=== PATIENT | male | born 1975 | race Caucasian/White ===

== ENCOUNTER 2020-05-03 08:33 | Day surgery (SDC) | payer BC ==
[2020-05-02 08:32] VITALS: BMI 25.8
[~2020-05-03 08:33] MED LIST: LACTATED RINGERS 1,000 ML IV SCH; LIDOCAINE 1% (10MG/ML) FOR IV START INTRADERMA PRN
[2020-05-03 08:51] VITALS: TEMP 98.6
[2020-05-03] MEDS ORDERED: PROPOFOL 10 MG/ML 20 ML VIAL IV ONE (08:59)
--- NOTE | 2020-05-03 09:01 | P.GSHP ---
History of Present Illness H&P Date: 05/03/20 Chief Complaint: Blood in stool This is a 45-year-old male presents today for colonoscopy. Patient's had issues rectal bleeding. He states he notices blood after bowel movement. Patient's history of hemorrhoids. Past Medical History Past Medical History: Hyperlipidemia, Hypertension Additional Past Medical History / Comment(s): OCC. BLOOD IN STOOL History of Any Multi-Drug Resistant Organisms: None Reported Additional Past Surgical History / Comment(s): COLONOSCOPY Past Anesthesia/Blood Transfusion Reactions: No Reported Reaction Past Psychological History: Anxiety Smoking Status: Current every day smoker Past Alcohol Use History: Occasional Additional Past Alcohol Use History / Comment(s): SMOKES 1 PPD SINCE AGE 46 Past Drug Use History: None Reported - Past Family History Father Family Medical History: Cancer Medications and Allergies Home Medications Medication Instructions Recorded Confirmed Type Ezetimibe/Simvastatin [Vytorin 1 tab PO DAILY 05/02/20 05/03/20 History 10-20 mg] amLODIPine BESYLATE/BENAZEPRIL 1 cap PO DAILY 05/02/20 05/03/20 History [Lotrel 5-20 MG] Allergies Allergy/AdvReac Type Severity Reaction Status Date / Time No Known Allergies Allergy Verified 05/03/20 08:47 Surgical - Exam Vital Signs Temp Pulse Resp BP Pulse Ox 98.6 F 102 H 16 162/107 97 05/03/20 08:50 05/03/20 08:50 05/03/20 08:50 05/03/20 08:50 05/03/20 08:50 - General well developed, well nourished, no distress - Eyes PERRL - ENT normal pinna - Neck no masses - Respiratory normal expansion, normal respiratory effort - Cardiovascular Rhythm: regular - Abdomen Abdomen: soft, non tender Assessment and Plan Assessment: History of rectal bleeding. We'll perform colonoscopy.
--- NOTE | 2020-05-03 09:09 | P.OP ---
Date of Procedure: 05/03/20 Preoperative Diagnosis: GI bleed Postoperative Diagnosis: External hemorrhoids Procedure(s) Performed: Colonoscopy Anesthesia: MAC Surgeon: Luis Fernando Augustine Pathology: none sent Condition: stable Disposition: PACU Description of Procedure: The patient's placed on the endoscopy table in the lateral position. He received IV sedation. Digital rectal exam performed which revealed external hemorrhoids. Flexible colonoscope was then placed patient anus passed rotator entire colon. The ileocecal valve was visualized. The cecum, ascending and transverse colon appeared normal. The descending and sigmoid colon appeared normal. Scope was then brought back the rectum and this appeared normal. Scope withdrawn from the anus external hemorrhoids are noted. Resume patient's rectal bleeding is due to external hemorrhoids.
[2020-05-03 09:28] VITALS: BP 137/86; PULSE 92; RESP 18
== END 2020-05-03 09:53 | disposition home or self-care (01) ==
LOC: ORWHC2ENDO 08:33
PROVIDERS: ATTEND Surgery
DX: K64.4 Residual hemorrhoidal skin tags (principal); E78.5 Hyperlipidemia, unspecified; I10 Essential (primary) hypertension; F41.9 Anxiety disorder, unspecified; F17.210 Nicotine dependence, cigarettes, uncomplicated; Z80.9 Family history of malignant neoplasm, unspecified; Z79.899 Other long term (current) drug therapy; Z98.890 Other specified postprocedural states
CPT/HCPCS: 45378; J2704

== ENCOUNTER → 2020-05-29 | Day surgery (SDC) | payer BC ==
[2020-05-28 13:33] VITALS: BMI 25.8
[~2020-05-29] MED LIST changes: +ACETAMINOPHEN TAB 500 MG TAB PO ONE; +BUPIVACAINE (PF) 0.5% 30 ML VIAL SQ ONE; +DEXAMETHASONE SOD PHOSPHATE 4 MG/ML 1 ML VIAL IV ONE; +HEPARIN SODIUM,PORCINE 5,000 UNIT/ML 1 ML VIAL SQ ONE; +HYDROmorphone 0.5 MG/0.5 ML SYRINGE IVP PRN; +KETAMINE 10 MG/ML 20 ML VIAL ONE; -LIDOCAINE 1% (10MG/ML) FOR IV START INTRADERMA PRN; +LIDOCAINE 1% INJ 10MG/ML (20 ML MDV) ONE; +LIDOCAINE 1%-EPI 1:100,000 20 ML VIAL SQ ONE; +MIDAZOLAM 2 MG/2 ML VIAL IV PRN; +MIDAZOLAM 2 MG/2 ML VIAL ONE; +NA PHOS,M-B/NA PHOS,DI-BA 133 ML ENEMA RECTAL ONE; +ONDANSETRON 4 MG/2 ML VIAL IVP ONE; +PROPOFOL 10 MG/ML 20 ML VIAL IV ONE; +Pre Op ABX Message 1 EACH MISC MISCELLANE ONE; +SCOPOLAMINE 1.5MG/72HR PATCH TRANSDERM ONE; +SODIUM CHLORIDE 0.9% 50 ML with ceFAZolin 2,000 MG IV ONE; +fentaNYL (PF) 50 MCG/ML 2 ML AMP ONE
[2020-05-29 07:21] VITALS: TEMP 98.6
--- NOTE | 2020-05-29 08:51 | P.GSHP ---
History of Present Illness H&P Date: 05/29/20 Chief Complaint: Internal and external hemorrhoids This a 45-year-old male who has had issues with anal pain and bleeding from internal and external hemorrhoids. He returns today for hemorrhoidectomy. Past Medical History Past Medical History: GERD/Reflux, Hyperlipidemia, Hypertension Additional Past Medical History / Comment(s): OCC. BLOOD IN STOOL, hemorrhoids, History of Any Multi-Drug Resistant Organisms: None Reported Additional Past Surgical History / Comment(s): COLONOSCOPY Past Anesthesia/Blood Transfusion Reactions: No Reported Reaction Smoking Status: Current every day smoker - Past Family History Father Family Medical History: Cancer Medications and Allergies Home Medications Medication Instructions Recorded Confirmed Type Ezetimibe/Simvastatin [Vytorin 1 tab PO HS 05/02/20 05/29/20 History 10-20 mg] amLODIPine BESYLATE/BENAZEPRIL 1 cap PO DAILY 05/02/20 05/29/20 History [Lotrel 5-20 MG] Allergies Allergy/AdvReac Type Severity Reaction Status Date / Time No Known Allergies Allergy Verified 05/29/20 07:34 Surgical - Exam Vital Signs Temp Pulse Resp BP Pulse Ox 98.6 F 82 17 157/103 98 05/29/20 07:20 05/29/20 07:20 05/29/20 07:20 05/29/20 07:20 05/29/20 07:20 - General well developed, well nourished, no distress - Eyes PERRL - ENT normal pinna - Neck no masses - Respiratory normal expansion - Cardiovascular Rhythm: regular - Abdomen Abdomen: soft, non tender - Rectum Internal and external hemorrhoids Assessment and Plan Assessment: Internal and external hemorrhoids. We'll perform hemorrhoidectomy.
--- NOTE | 2020-05-29 09:34 | P.OP ---
Date of Procedure: 05/29/20 Preoperative Diagnosis: Internal and Hemorrhoids Postoperative Diagnosis: Internal and external hemorrhoids Procedure(s) Performed: Internal and external hemorrhoidectomy Anesthesia: MAC, regional Surgeon: Luis Fernando Augustine Estimated Blood Loss (ml): 5 Pathology: other (Internal and external hemorrhoids) Condition: stable Disposition: PACU Description of Procedure: The patient's placed on the operative table in the prone jackknife position. He received IV sedation. His anus was prepped and draped usual fashion. The anus was anesthetized 1% local Xylocaine. The patient had a large left lateral hemorrhoidal column and a large right anterior hemorrhoidal column. The anal r etractors placed in the anus. The left lateral hemorrhoidal column was grasped with a Allis clamp and then using the Harmonic scissors the hemorrhoidectomy is performed. The mucosal edges were reapproximated using 3-0 Vicryl. Next the right anterior hemorrhoid column was excised in identical fashion. The anus was excised examined there is no bleeding seen. The anus was packed with Gelfoam. Patient top she will was sent to recovery room in stable condition.
[2020-05-29 09:40] VITALS: RESP 16
[2020-05-29 10:22] VITALS: BP 155/90; PULSE 86
== END ==
LOC: OR 06:52
PROVIDERS: ATTEND Surgery
DX: K64.8 Other hemorrhoids (principal); K64.4 Residual hemorrhoidal skin tags; K64.5 Perianal venous thrombosis; K21.9 Gastro-esophageal reflux disease without esophagitis; E78.5 Hyperlipidemia, unspecified; I10 Essential (primary) hypertension; F17.210 Nicotine dependence, cigarettes, uncomplicated; Z98.890 Other specified postprocedural states; Z79.899 Other long term (current) drug therapy; Z80.9 Family history of malignant neoplasm, unspecified
CPT/HCPCS: 88304; 46260; J2250; J1644; J1100; J2405; J0690; J2001; J3010; J2704

== ENCOUNTER 2023-05-22 13:45 | Emergency (ER) | payer BC ==
--- NOTE | 2023-05-22 13:59 | ED ---
Dizziness HPI - General Stated Complaint: dizzy Time Seen by Provider: 05/22/23 13:56 Source: patient Limitations: no limitations - History of Present Illness Initial Comments: This patient is a 48-year-old man who presents to have evaluation for feeling lightheaded and dizzy. Patient states that he had gotten up to use the bathroom, and then after urinating felt lightheaded and off balance. The annmarie ent's daughter reported that he went down to his knees and did briefly pass out. He then states he remembers feeling nauseated and vomited once. The patient's checked his blood pressure and it was 170/110. They checked again a few minutes later and it had gone up so she called EMS and he was brought here. The patient denies chest pain, dyspnea, diaphoresis. No neurologic symptoms. MD Complaint: lightheadedness -: minutes(s) Timing: sudden onset Description: lightheadedness, off-balance History of Same: No History of Trauma: No Severity: moderate Improves With: nothing Associated Symptoms: syncope - Related Data Previous Rx's Medication Instructions Recorded amLODIPine BESYLATE/BENAZEPRIL 1 each PO DAILY #20 capsule 05/22/23 [Lotrel 5-20 mg Capsule] Allergies Allergy/AdvReac Type Severity Reaction Status Date / Time No Known Allergies Allergy Verified 05/22/23 15:37 Review of Systems ROS Statement: Those systems with pertinent positive or pertinent negative responses have been documented in the HPI. ROS Other: All systems not noted in ROS Statement are negative. Constitutional: Denies: fever, chills Eyes: Denies: vision change Respiratory: Denies: cough, dyspnea, wheezes Cardiovascular: Denies: chest pain, palpitations, orthopnea, edema, syncope Gastrointestinal: Reports: nausea, vomiting. Denies: abdominal pain, diarrhea, melena, hematochezia Genitourinary: Denies: dysuria, hematuria Musculoskeletal: Denies: back pain Skin: Denies: rash Neurological: Denies: headache, weakness, numbness Past Medical History Past Medical History: GERD/Reflux, Hyperlipidemia, Hypertension Additional Past Medical History / Comment(s): OCC. BLOOD IN STOOL, hemorrhoids, History of Any Multi-Drug Resistant Organisms: None Reported Additional Past Surgical History / Comment(s): COLONOSCOPY Past Anesthesia/Blood Transfusion Reactions: No Reported Reaction Smoking Status: Current every day smoker - Past Family History Father Family Medical History: Cancer General Exam General appearance: alert, in no apparent distress Head exam: Present: atraumatic, normocephalic Eye exam: Present: normal appearance. Absent: scleral icterus, conjunctival injection ENT exam: Present: normal oropharynx Neck exam: Present: normal inspection Respiratory exam: Present: normal lung sounds bilaterally. Absent: respiratory distress, wheezes, rales, rhonchi, stridor Cardiovascular Exam: Present: regular rate, normal rhythm, normal heart sounds. Absent: systolic murmur, diastolic murmur, rubs, gallop GI/Abdominal exam: Present: soft. Absent: distended, tenderness, guarding, rebound, rigid, mass Extremities exam: Present: normal inspection, normal capillary refill. Absent: pedal edema, calf tenderness Back exam: Present: normal inspection. Absent: CVA tenderness (R), CVA tenderness (L) Neurological exam: Present: alert Skin exam: Present: warm, dry, intact, normal color. Absent: rash Course Vital Signs 05/22/23 05/22/23 05/22/23 13:50 14:00 14:15 Temperature 97.9 F Pulse Rate 77 70 75 Respiratory 15 15 15 Rate Blood Pressure 195/122 195/122 184/120 O2 Sat by Pulse 94 L 96 95 Oximetry 05/22/23 05/22/23 05/22/23 14:30 15:00 15:30 Temperature Pulse Rate 78 76 62 Respiratory 16 15 16 Rate Blood Pressure 182/118 188/113 179/119 O2 Sat by Pulse 96 98 Oximetry 05/22/23 05/22/23 05/22/23 16:00 16:30 17:00 Temperature Pulse Rate 59 L 67 73 Respiratory 15 17 20 Rate Blood Pressure 192/120 167/114 170/112 O2 Sat by Pulse 96 97 97 Oximetry 05/22/23 05/22/23 05/22/23 17:30 18:00 18:17 Temperature Pulse Rate 64 69 Respiratory 17 17 Rate Blood Pressure 174/112 172/107 166/107 O2 Sat by Pulse 96 96 Oximetry EKG Findings - EKG Results: EKG: interpreted by ERMJax, sinus rhythm (79 bpm), normal axis - Blocks, [place], Hypertrophy, ST Abn: AV and intraventricular conduction: intraventricular conduction delay Medical Decision Making - Medical Decision Making The patient had chest x-ray which I interpreted as negative for acute infiltrate, congestive heart failure, pneumothorax. This patient is 48-year-old man who presents to have evaluation for dizziness and found to be hypertensive. The patient had previous taken antihypertensives but then had not had these refilled for some period of time. The workup here is negative. Patient will be replaced on antihypertensives and have appropriate further care and follow-up Was pt. sent in by a medical professional or institution (, [facility]LLY, FIRING PIN GAUGER, urgent care, hospital, or correction...) When possible be specific @ -[No] Did you speak to anyone other than the patient for history (EMS, parent, family, police, friend...)? What history was obtained from this source @ -[Family did contribute history Did you review nursing and triage notes (agree or disagree)? Why? @ -[I reviewed and agree with nursing and triage notes] Were old charts reviewed (outside hosp., previous admission, EMS record, old EKG, old radiological studies, urgent care reports/EKG's, correction records)? Report findings @ -[No old charts were reviewed] Differential Diagnosis (chest pain, altered mental status, abdominal pain women, abdominal pain men, vaginal bleeding, weakness, fever, dyspnea, syncope, headache, dizziness, GI bleed, back pain, seizure, CVA, palpatations, mental health, musculoskeletal)? @ -Differential Dizziness: Benign paroxysmal positional Vertigo, Menieres disease, otitis media, acoustic neuroma, vertebrobasilar insufficiency, cerebellar stroke, encephalitis, hypovol emic, arrhythmia, coronary artery syndrome, anemia, this is not meant to be an all-inclusive list EKG interpreted by me (3pts min.). @ -[I interpreted As above] X-rays interpreted by me (1pt min.). @ -[I interpreted as above CT interpreted by me (1pt min.). @ -[None done] U/S interpreted by me (1pt. min.). @ -[None done] What testing was considered but not performed or refused? (CT, X-rays, U/S, labs)? Why? @ -[None] What meds were considered but not given or refused? Why? @ -[None] Did you discuss the management of the patient with other professionals (professionals i.e. CHELLY Morris, [employer]ING [employer]GER, lab, RT, psych nurse, social work lecturer, supervisor bridges and buildings, teacher, attendance officer, director case management)? Give summary @ -[No] Was smoking cessation discussed for >3mins.? @ -[No] Was critical care preformed (if so, how long)? @ -[No] Were there social determinants of health that impacted care today? How? (Homelessness, low income, unemployed, alcoholism, drug addiction, transportation, low edu. Level, literacy, decrease access to med. care, care home, rehab)? @ -[No] Was there de-escalation of care discussed even if they declined (Discuss DNR or withdrawal of care, Hospice)? DNR status @ -[No] What co-morbidities impacted this encounter? (DM, HTN, Smoking, COPD, CAD, Cancer, CVA, ARF, Chemo, Hep., AIDS, mental health diagnosis, sleep apnea, morbid obesity)? @ -[None] Was patient admitted / discharged? Hospital course, mention meds given and route, prescriptions, significant lab abnormalities, going to OR and other pertinent info. @ -[As above Undiagnosed new problem with uncertain prognosis? @ -[No] Drug Therapy requiring intensive monitoring for toxicity (Heparin, Nitro, Insulin, Cardizem)? @ -[No] Were any procedures done? @ -[No] Diagnosis/symptom? @ -[Acute dizziness Acute on Chronic hypertension Acute, or Chronic, or Acute on Chronic? @ -[default] Uncomplicated (without systemic symptoms) or Complicated (systemic symptoms)? @ -[Hypertension, by dizziness Side effects of treatment? @ -[No] Exacerbation, Progression, or Severe Exacerbation? @ -[No] Poses a threat to life or bodily function? How? (Chest pain, [place], [place], pneumonia, PE, COPD, DKA, ARF, appy, cholecystitis, CVA, Diverticulitis, Homicidal, Suicidal, threat to staff... and all critical care pts) @ -[Untreated hypertension will eventually progress to organ system injury - Lab Data Result diagrams: 05/22/23 14:03 05/22/23 14:03 Lab Results 05/22/23 05/22/23 05/22/23 Range/Units 14:03 14:03 14:03 WBC 8.3 (3.8-10.6) k/uL RBC 4.97 (4.30-5.90) m/uL Hgb 14.7 (13.0-17.5) gm/dL Hct 42.1 (39.0-53.0) % MCV 84.8 (80.0-100.0) fL MCH 29.6 (25.0-35.0) pg MCHC 34.9 (31.0-37.0) g/dL RDW 12.9 (11.5-15.5) % Plt Count 206 (150-450) k/uL MPV 7.8 Neutrophils % 69 % Lymphocytes % 24 % Monocytes % 5 % Eosinophils % 1 % Basophils % 0 % Neutrophils # 5.8 (1.3-7.7) k/uL Lymphocytes # 2.0 (1.0-4.8) k/uL Monocytes # 0.4 (0-1.0) k/uL Eosinophils # 0.1 (0-0.7) k/uL Basophils # 0.0 (0-0.2) k/uL PT 10.1 (10.0-12.5) sec INR 0.9 (<1.2) APTT 23.2 (22.0-30.0) sec Sodium 141 (137-145) mmol/L Potassium 3.3 L (3.5-5.1) mmol/L Chloride 110 H (98-107) mmol/L Carbon Dioxide 22 (22-30) mmol/L Anion Gap 9 mmol/L BUN 9 (9-20) mg/dL Creatinine 1.00 (0.66-1.25) mg/dL Est GFR (CKD-EPI)AfAm >90 (>60 ml/min/1.73 sqM) Est GFR (CKD-EPI)NonAf 89 (>60 ml/min/1.73 sqM) Glucose 108 H (74-99) mg/dL Calcium 8.8 (8.4-10.2) mg/dL Magnesium 2.1 (1.6-2.3) mg/dL Total Bilirubin 0.6 (0.2-1.3) mg/dL AST 19 (17-59) U/L ALT 15 (4-49) U/L Alkaline Phosphatase 90 (38-126) U/L Troponin I (0.000-0.034) ng/mL Total Protein 6.7 (6.3-8.2) g/dL Albumin 4.1 (3.5-5.0) g/dL 05/22/23 Range/Units 14:03 WBC (3.8-10.6) k/uL RBC (4.30-5.90) m/uL Hgb (13.0-17.5) gm/dL Hct (39.0-53.0) % MCV (80.0-100.0) fL MCH (25.0-35.0) pg MCHC (31.0-37.0) g/dL RDW (11.5-15.5) % Plt Count (150-450) k/uL MPV Neutrophils % % Lymphocytes % % Monocytes % % Eosinophils % % Basophils % % Neutrophils # (1.3-7.7) k/uL Lymphocytes # (1.0-4.8) k/uL Monocytes # (0-1.0) k/uL Eosinophils # (0-0.7) k/uL Basophils # (0-0.2) k/uL PT (10.0-12.5) sec INR (<1.2) APTT (22.0-30.0) sec Sodium (137-145) mmol/L Potassium (3.5-5.1) mmol/L Chloride (98-107) mmol/L Carbon Dioxide (22-30) mmol/L Anion Gap mmol/L BUN (9-20) mg/dL Creatinine (0.66-1.25) mg/dL Est GFR (CKD-EPI)AfAm (>60 ml/min/1.73 sqM) Est GFR (CKD-EPI)NonAf (>60 ml/min/1.73 sqM) Glucose (74-99) mg/dL Calcium (8.4-10.2) mg/dL Magnesium (1.6-2.3) mg/dL Total Bilirubin (0.2-1.3) mg/dL AST (17-59) U/L ALT (4-49) U/L Alkaline Phosphatase (38-126) U/L Troponin I 0.014 (0.000-0.034) ng/mL Total Protein (6.3-8.2) g/dL Albumin (3.5-5.0) g/dL Disposition Clinical Impression: Hypertension, Dizziness Disposition: HOME SELF-CARE Condition: Good Instructions (If sedation given, give patient instructions): Hypertension (ED), Dizziness (ED) Prescriptions: amLODIPine BESYLATE/BENAZEPRIL [Lotrel 5-20 mg Capsule] 1 each PO DAILY #20 capsule Is patient prescribed a controlled substance at d/c from ED?: No Referrals: José Luis Jerome MD [Primary Care Provider] - 1-2 days
[2023-05-22 14:09] LABS: Basophils % (A) 0 %; Eosinophils # (A) 0.1 k/uL (0-0.7); Eosinophils % (A) 1 %; HCT 42.1 % (39.0-53.0); HGB 14.7 gm/dL (13.0-17.5); Lymphocytes % (A) 24 %; MCH 29.6 pg (25.0-35.0); MCHC 34.9 g/dL (31.0-37.0); MCV 84.8 fL (80.0-100.0); Mean Platelet Volume 7.8; Monocytes # (A) 0.4 k/uL (0-1.0); Monocytes % (A) 5 %; Neutrophils # (A) 5.8 k/uL (1.3-7.7); Neutrophils % (A) 69 %; Platelet Count 206 k/uL (150-450); RBC 4.97 m/uL (4.30-5.90); RDW 12.9 % (11.5-15.5); WBC 8.3 k/uL (3.8-10.6)
[2023-05-22 14:20] VITALS: TEMP 97.9
[2023-05-22 14:23] LABS: ALT 15 U/L (4-49); AST 19 U/L (17-59); African American GFR (CKD) >90 (>60 ml/min/1.73 sqM); Albumin 4.1 g/dL (3.5-5.0); Alkaline Phosphatase 90 U/L (38-126); Anion Gap 9 mmol/L; Blood Urea Nitrogen 9 mg/dL (9-20); Calcium 8.8 mg/dL (8.4-10.2); Carbon Dioxide 22 mmol/L (22-30); Chloride 110 mmol/L (98-107); Glucose 108 mg/dL (74-99); Magnesium 2.1 mg/dL (1.6-2.3); Non-African American GFR(CKD) 89 (>60 ml/min/1.73 sqM); Potassium 3.3 mmol/L (3.5-5.1); Sodium 141 mmol/L (137-145); Total Bilirubin 0.6 mg/dL (0.2-1.3); Total Protein 6.7 g/dL (6.3-8.2)
[2023-05-22 14:26] LABS: INR 0.9 (<1.2); Partial Thromboplastin Time 23.2 sec (22.0-30.0); Prothrombin Time 10.1 sec (10.0-12.5)
--- NOTE | 2023-05-22 14:33 | XR ---
EXAMINATION TYPE: XR chest 2V DATE OF EXAM: 05/22/2023 COMPARISON: NONE HISTORY: Syncope. TECHNIQUE: Frontal and lateral views of the chest are obtained. FINDINGS: There is no focal air space opacity, pleural effusion, or pneumothorax seen. The cardiac silhouette size is within normal limits. The osseous structures are intact. IMPRESSION: No acute cardiopulmonary process.
[2023-05-22] MEDS ORDERED: ONDANSETRON 4 MG/2 ML VIAL IVP STA (15:13)
[2023-05-22] MEDS ORDERED: POTASSIUM CHLORIDE ER 20 MEQ TAB.ER PO STA (15:35)
[2023-05-22] MEDS ORDERED: lisinopriL 20 MG TAB PO STA (15:36)
[2023-05-22] MEDS ORDERED: amLODIPine 5 MG TAB PO STA (15:36)
[2023-05-22] MEDS ORDERED: LABETALOL 5 MG/ML VIAL MDV IVP STA (16:55)
[2023-05-22 17:40] VITALS: RESP 17
[2023-05-22 18:17] VITALS: PULSE 69
[2023-05-22 18:18] VITALS: BP 166/107
== END 2023-05-22 18:22 | disposition home or self-care (01) ==
LOC: EC 13:45
DX: I10 Essential (primary) hypertension (principal); R42 Dizziness and giddiness; F17.200 Nicotine dependence, unspecified, uncomplicated
CPT/HCPCS: 36415; 93005; 80053; 83735; 84484; 85025; 85610; 85730; 71046; 99285; 96374; 96375; J2405; J1920

== ENCOUNTER → 2023-05-25 | Outpatient (CLI) | payer BC ==
--- NOTE | 2023-05-25 13:19 | CT ---
EXAMINATION TYPE: CT brain wo con CT DLP: 995.5 mGycm, Automated exposure control for dose reduction was used. DATE OF EXAM: 05/25/2023 1:08 PM COMPARISON: None. CLINICAL INDICATION:Male, 48 years old with history of R55 SCOPE, syncope, htn TECHNIQUE: Brain: Multiple axial CT images of the brain were obtained without IV contrast. Coronal and sagittal reformats reviewed. FINDINGS: Brain: Extra-axial spaces: No abnormal extra-axial fluid collections. Ventricular system: No hydrocephalus. Ovoid 9 mm hyperdense lesion near the interventricular foramen of Monro (series 3, image 29) Cerebral parenchyma: No acute intraparenchymal hemorrhage or mass effect. The strickland-white junction is well differentiated. Scattered hypoattenuating areas are seen within the white matter. Cerebellum: Unremarkable. Mass effect: No evidence of midline shift. Intracranial vasculature: Atherosclerotic calcifications of the intracranial vessels. Soft tissues: Normal. Calvarium/osseous structures: No depressed skull fracture. Paranasal sinuses and mastoid air cells: Mastoid air cells are clear. Likely mucous retention cyst me asuring 2.1 cm within the left maxillary sinus. Additional smaller mucous retention cyst within the l eft frontal sinus. Visualized orbits: Orbital contents are intact. IMPRESSION: 1. No acute intracranial process. 2. Nonspecific white matter changes, likely secondary to chronic small vessel ischemic disease. 3. 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 No hydrocephalus at this time. Cons ider neurosurgical consult.
[2023-05-25 14:10] LABS: Basophils % (A) 0 %; Eosinophils # (A) 0.1 k/uL (0-0.7); Eosinophils % (A) 1 %; HCT 46.3 % (39.0-53.0); HGB 16.3 gm/dL (13.0-17.5); Lymphocytes # (A) 2.2 k/uL (1.0-4.8); Lymphocytes % (A) 20 %; MCH 30.3 pg (25.0-35.0); MCHC 35.2 g/dL (31.0-37.0); MCV 86.1 fL (80.0-100.0); Monocytes # (A) 0.4 k/uL (0-1.0); Monocytes % (A) 4 %; Neutrophils # (A) 8.2 k/uL (1.3-7.7); Neutrophils % (A) 74 %; Platelet Count 255 k/uL (150-450); RBC 5.37 m/uL (4.30-5.90)
[2023-05-25 14:31] LABS: ALT 16 U/L (4-49); AST 21 U/L (17-59); African American GFR (CKD) 73 (>60 ml/min/1.73 sqM); Albumin 4.5 g/dL (3.5-5.0); Albumin/Globulin Ratio 1.5; Alkaline Phosphatase 82 U/L (38-126); Anion Gap 11 mmol/L; Blood Urea Nitrogen 13 mg/dL (9-20); Calcium 9.5 mg/dL (8.4-10.2); Carbon Dioxide 25 mmol/L (22-30); Chloride 106 mmol/L (98-107); Creatine Kinase 63 U/L (55-170); Glucose 106 mg/dL (74-99); Non-African American GFR(CKD) 63 (>60 ml/min/1.73 sqM); Potassium 4.1 mmol/L (3.5-5.1); Sodium 142 mmol/L (137-145); Total Bilirubin 0.7 mg/dL (0.2-1.3); Total Protein 7.5 g/dL (6.3-8.2)
[2023-05-25 14:32] LABS: Creatine Kinase MB 0.6 ng/mL (0.0-3.4); Troponin I <0.012 ng/mL (0.000-0.034)
[2023-05-25 14:39] LABS: NT-Pro-B-Type Natriuretic Pept 248 pg/mL
[2023-05-25 22:29] LABS: Chol/HDL Ratio 6.03 Ratio; LDL Cholesterol,Calculated 166.5 mg/dL (0.0-131.0); Prostate Specific Antigen 1.58 ng/mL (0.000-2.500)
== END | disposition home or self-care (01) ==
LOC: LABWHC1 12:51
PROVIDERS: ATTEND Family Medicine
DX: J34.1 Cyst and mucocele of nose and nasal sinus (principal)
CPT/HCPCS: 36415; 70450; 80053; 80061; 82550; 82553; 83036; 83880; 84153; 84484; 85025

== ENCOUNTER → 2023-05-25 | Outpatient (CLI) | payer BC | END | disposition home or self-care (01) | LOC: RADCTMAIN 12:45 | PROVIDERS: ATTEND Family Medicine | DX: Z53.9 Procedure and treatment not carried out, unspecified reason (principal) ==

== ENCOUNTER → 2023-05-26 | Outpatient (CLI) | payer BC ==
--- NOTE | 2023-05-26 15:30 | US ---
EXAMINATION TYPE: US carotid duplex BILAT DATE OF EXAM: 05/26/2023 COMPARISON: NONE CLINICAL INDICATION: Male, 48 years old with history of R55 SYNCOPE COLLAPSE; Syncope. Current smoker , hypertension. TECHNIQUE: Carotid duplex ultrasound examination. Indirect Doppler criteria was utilized. FINDINGS: EXAM MEASUREMENTS: RIGHT: Peak Systolic Velocity (PSV) cm/sec ----- Right CCA: 83.1 ----- Right ICA: 76.4 ----- Right ECA: 64.2 ICA/CCA ratio: 0.9 RIGHT: End Diastole cm/sec ----- Right CCA: 27.0 ----- Right ICA: 36.3 ----- Right ECA: 16.2 LEFT: Peak Systolic Velocity (PSV) cm/sec ----- Left CCA: 84.3 ----- Left ICA: 80.8 ----- Left ECA: 90.8 ICA/CCA ratio: 1.0 LEFT: End Diastole cm/sec ----- Left CCA: 28.4 ----- Left ICA: 34.5 ----- Left ECA: 29.2 VERTEBRALS (direction of flow): Right Vertebral: Antegrade Left Vertebral: Antegrade Rhythm: Normal FIBERLINE SUPERVISOR NOTES: No elevated velocities at this time. Intimal thickening seen bilaterally. Right v ertebral waveform appears to be slightly diminished. IMPRESSION: 1. No hemodynamically significant internal carotid artery stenosis on either side. 2. Some diminished peak systolic velocities within the right vertebral artery could represent an upst ream stenosis such as at its origin. Criteria for Assigning % of Stenosis / Diameter reduction (Estimation based on the indirect measurements of the internal carotid artery velocities (ICA PSV). 1. Normal (no stenosis)=ICA PSV < 125 cm/s: ratio < 2.0: ICA EDV<40 cm/s. 2. Less than 50% stenosis=ICA PSV < 125 cm/s: ratio < 2.0: ICA EDV<40 cm/s. 3. 50 to 69% stenosis=ICA PSV of 125 to 230 cm/s: ration 2.0 ? 4.0: ICA EDV 40-100 cm/s. 4. Greater than 70% stenosis to near occlusion= ICA PSV > 230 cm/s: ratio > 4.0: ICA EDV > 100 cm/s. 5. Near occlusion= ICA PSV velocities may be low or undetectable: variable ratio and ICA EDV. 6. Total occlusion=unable to detect flow.
--- NOTE | 2023-05-27 11:19 | CA ---
Transthoracic Echo Report Name: Manpreet Hill Age: 48 Gender: M : 1975 Exam Date: 05/26/2023 15:09 Exam Location: [facility] Ht (in): 68 Wt (lb): 176 Ordering Physician: Giancarlo Ureña MD Attending/Referring Phys: Maria E Morris COUNTS INCLUDE 234 BEDS AT THE [facility] Safety Engineer Pressure Vessels Ana Paula Haney [facility] Procedure CPT: Indications: R55 SYNCOPE COLLAPSE Cardiac Hx: Technical Quality: Fair Contrast 1: Total Dose (mL): Contrast 2: Total Dose (mL): MEASUREMENTS (Male / Female) Normal Values 2D ECHO LV Diastolic Diameter PLAX 5.5 cm 4.2 - 5.9 / 3.9 - 5.3 cm LV Systolic Diameter PLAX 4.0 cm IVS Diastolic Thickness 1.1 cm 0.6 - 1.0 / 0.6 - 0.9 cm LVPW Diastolic Thickness 1.1 cm 0.6 - 1.0 / 0.6 - 0.9 cm LV Relative Wall Thickness 0.4 LVOT Diameter 2.0 cm LV Diastolic Volume MOD BP 131.1 cm??? 67 - 155 / 56 - 104 cm??? LV Systolic Volume MOD BP 74.0 cm??? 22 - 58 / 19 - 49 cm??? LV Ejection Fraction MOD BP 43.5 % >= 55 % LV Cardiac Index MOD BP 2433.1 cm???/min???m??? LV Diastolic Volume MOD 4C 135.9 cm??? LV Systolic Volume MOD 4C 74.4 cm??? LV Ejection Fraction MOD 4C 45.3 % LV Cardiac Index MOD 4C 2621.2 cm???/min???m??? LV Diastolic Length 4C 8.9 cm LV Systolic Length 4C 7.3 cm LV Diastolic Volume MOD 2C 125.6 cm??? LV Systolic Volume MOD 2C 62.3 cm??? LV Ejection Fraction MOD 2C 50.4 % LV Cardiac Index MOD 2C 2696.8 cm???/min???m??? LV Diastolic Length 2C 9.0 cm LV Systolic Length 2C 8.7 cm Ascending Aorta Diameter 3.8 cm M-MODE Aortic Root Diameter MM 2.9 cm LA Systolic Diameter MM 3.7 cm LA Ao Ratio MM 1.3 AV Cusp Separation MM 2.2 cm DOPPLER AV Peak Velocity 114.6 cm/s AV Peak Gradient 5.3 mmHg AV Mean Velocity 86.2 cm/s AV Mean Gradient 3.2 mmHg AV Velocity Time Integral 19.5 cm LVOT Peak Velocity 112.4 cm/s LVOT Peak Gradient 5.1 mmHg LVOT Velocity Time Integral 15.6 cm LVOT Stroke Volume 49.7 cm??? LVOT Stroke Volume Index 25.7 ml/m??? LVOT Cardiac Index 2116.4 cm???/min???m??? AV Area Cont Eq vti 2.5 cm??? AV Area Cont Eq pk 3.1 cm??? Mitral E Point Velocity 42.0 cm/s Mitral A Point Velocity 71.3 cm/s Mitral E to A Ratio 0.6 MV Deceleration Time 241.1 ms LV E' Lateral Velocity 6.4 cm/s Mitral E to LV E' Lateral Ratio 6.5 LV E' Septal Velocity 4.1 cm/s Mitral E to LV E' Septal Ratio 10.2 TR Peak Velocity 216.5 cm/s TR Peak Gradient 18.7 mmHg Right Atrial Pressure 3.0 mmHg Pulmonary Artery Systolic Pressu 21.7 mmHg Right Ventricular Systolic Press 21.7 mmHg FINDINGS Left Ventricle Mild concentric left ventricular hypertrophy. Left ventricular cavity size at the upper limits of normal. Moderately increased left ventricular systolic volume. Moderately decreased left ventricular ejection fraction. Left ventricular ejection fraction is estimated at 40-45%. Global hypokinesis with no segmental wall motion abnormalities Right Ventricle Mild right ventricular dilatation. Right Atrium Normal right atrial size. Left Atrium Normal left atrial size. Mitral Valve Structurally normal mitral valve. Mild mitral regurgitation. Aortic Valve Aortic valve not well visualized. Trace aortic regurgitation. Tricuspid Valve Structurally normal tricuspid valve. Trace tricuspid regurgitation. Pulmonic Valve Structurally normal pulmonic valve. No pulmonic regurgitation. Pericardium No pericardial effusion. Aorta Normal size aortic root and upper normal proximal ascending aorta. CONCLUSIONS 1. Moderate global left ventricular systolic dysfunction 2. Mild mitral with trace aortic regurgitation Previewed by: Dr. Alba Garcia MD (Electronically Signed) Final Date: 27 May 2023 11:18
== END | disposition home or self-care (01) ==
LOC: RADUSWWP 14:28
PROVIDERS: ATTEND Family Medicine
DX: I08.0 Rheumatic disorders of both mitral and aortic valves (principal); R55 Syncope and collapse; F17.210 Nicotine dependence, cigarettes, uncomplicated; I10 Essential (primary) hypertension
CPT/HCPCS: 93306; 93880

== ENCOUNTER → 2023-06-01 | Outpatient (CLI) | payer BC ==
--- NOTE | 2023-06-01 21:20 | MR ---
EXAMINATION TYPE: MR brain wo/w con, MR angio head wo con DATE OF EXAM: 06/01/2023 COMPARISON: CT 05/25/2023 HISTORY: 48-year-old male G93.0, cerebral cyst. No prior MR, abnormal CT follow up TECHNIQUE: Multiplanar, multisequence images of the brain and brainstem were acquired before and aft er administration of 8ml mL IV Gadavist. Diffusion weighted imaging is performed. Subsequent high-resolution 3-D [id number] imaging of the [place]. Rotational 3-D reconst ructions generated on a dedicated independent workstation. FINDINGS: MRI: No evidence for acute infarction, hemorrhage, mass, mass effect, midline shift, herniation, effacemen t of basal cisterns, or extra-axial fluid collection. The ventricles and sulci are age-appropriate. There is diminished caliber to the V4 segment flow void and filling defect in the V4 segment left terry tebral artery suggesting atherosclerotic change and narrowing. T2/FLAIR weighted sequences show moderate to severe patchy bright white matter change in the perivent ricular and deep white matter regions of both cerebral hemispheres. In addition, there is a T1 and T2 intermediate signal intensity, rounded nonenhancing lesion in the r egion of the foramen of Cristina measuring 9 mm. Midline structures demonstrate normal morphology. The craniocervical junction is normal. Post contrast images demonstrate no evidence of pathologic enhancement. Dural venous sinuses are pat ent. Mucosal retention cyst within the left maxillary sinus measuring up to 2.2 cm. Mucosal retention cyst measuring 1.5 cm left frontal sinus. Mild mucosal thickening ethmoid air cells. Scattered fluid with in the right mastoid air cells. MRA: There is moderate focal stenosis involving the V4 segment left vertebral artery. There is diminished flow related enhancement within the V4 segment right vertebral artery suggesting an upstream stenosis. Possible fenestrated distal aspect of the V4 segment. The basilar artery and remainder of the posterior circulation appears patent. Preserved flow related enhancement within the bilateral internal carotid arteries and remainder of th e anterior circulation. No aneurysmal change is seen. COMBINED IMPRESSION: MRI: 1. Chronic T2 bright white matter changes involving the periventricular and deep white matter regions of both cerebral hemispheres with moderate to severe overall burden. Findings may reflect accelerate d changes of chronic small vessel ischemic disease. Correlate to exclude demyelinating disease or vas culitis. 2. 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 No hydrocephalus at this time. Recommend neurosurgic al referral for a discussion in regards to potential treatment, monitoring, and further patient educa tion. 3. No acute intracranial abnormality seen. MRA: 4. Diminished flow related enhancement V4 segment right vertebral artery suggests a possible hemodyna mically significant upstream stenosis. Consider CTA neck if clinically indicated. There may some vari ant anatomy with a fenestration of this vessel as well. 5. Moderate focal stenosis before segment left vertebral artery. 6. The remainder of the posterior circulation as well as the internal carotid arteries and anterior c irculation are patent.
== END | disposition home or self-care (01) ==
LOC: RADMRIMAIN 07:14
PROVIDERS: ATTEND Family Medicine
DX: G93.0 Cerebral cysts (principal); G93.89 Other specified disorders of brain; I65.02 Occlusion and stenosis of left vertebral artery
CPT/HCPCS: 70544; 70553; A9585

== ENCOUNTER → 2023-07-03 | Outpatient (CLI) | payer BC ==
--- NOTE | 2023-07-03 11:29 | CA ---
Stress Echo Report Manpreet Hill Age: 48 Gender: M : 1975 Exam Date: 07/03/2023 10:23 Exam Location: [place] [facility] Ht (in): 68 Wt (lb): 172 Ordering Physician: Marino Seth MD ([id number]) Referring Physician: MARINO SETH,, Narcotics Investigator: Ana Paula Haney [facility] Technologist Procedure CPT: Indication: I42.0 Dilated Cardiomyopathy ICD-9 Codes: Rhythm: Patient History: Cardiac Medications: Medications in past 24 hours: Contrast: N/A Stress Results Protocol: Pravin Total dose(mL): Exercise Duration (min:sec): 13:[address] Depression (mm): Angina Score: Casas Score: METS: 13.3 Resting HR: 88 Resting BP: 179 / 96 Peak HR: 151 Peak BP: 210 / 88 Max Predicted HR: 173 87 % Max Predicted HR Target HR: 147 Double Product: 25226 Stress Summary: BP Response: Reason for Termination: Reached target heart rate or work-load Cardiac Symptoms: NO SYMPTOMS ECG Analysis Resting ECG: Stress ECG: Arrhythmia: Echo Analysis Resting Echo: Peak Echo Analysis: MEASUREMENTS (Male/Female) Normal Values CONCLUSIONS Excellent exercise tolerance Normal electrocardiogram and echocardiogram in response to exercise Dr. Vitaly Bustillo MD (Electronically Signed) Final Date: 03 July 2023 11:28
== END | disposition home or self-care (01) ==
LOC: RADNMMAIN 09:59
PROVIDERS: ATTEND Student in an Organized Health Care Education/Training Program
DX: I42.0 Dilated cardiomyopathy (principal)
CPT/HCPCS: 93351

== ENCOUNTER → 2024-02-09 | Outpatient (CLI) | payer BC ==
--- NOTE | 2024-02-09 12:28 | MR ---
EXAMINATION TYPE: MR angio head wo con DATE OF EXAM: 02/09/2024 COMPARISON: 06/01/2023 HISTORY: 48-year-old female G93.0, Follow-up cerebral cysts. TECHNIQUE: High resolution 3-D [id number] imaging of the [place]. Rotational 3-D reconst ructions generated on a dedicated independent workstation. FINDINGS: Redemonstrated diminutive flow-related enhancement of the V4 segment right vertebral artery. Possibly due to congenital hypoplasia or an upstream stenosis. Redemonstrated moderate focal stenosis V4 segment left vertebral artery at the takeoff of the left po sterior inferior cerebellar artery. There is a focal protuberance measuring 3 mm here at the left PIC A takeoff, axial image 25. Present in retrospect but better seen on the current exam. There is also a 2 mm protuberance from the anterior margin of the V4 segment left vertebral artery just below, axial image 15. The basilar artery and remainder of the posterior circulation is patent. The bilateral internal carotid arteries and remainder of the anterior circulation are also patent. Known 9 mm colloid cyst at the foramen of Navarro. MRI brain reported separately. IMPRESSION: 1. Stable exam. Better seen on the current study is a 3 mm infundibulum versus saccular aneurysm at t he left PICA takeoff from the V4 segment left vertebral artery. 2. A second 2 mm protuberance, possible tiny saccular aneurysm from the anterior margin of the V4 seg ment left vertebral artery just below. 3. Moderate focal stenosis V4 segment left vertebral artery at the PICA takeoff redemonstrated. 4. Redemonstrated diminutive flow-related enhancement V4 segment right vertebral artery either due to congenital hypoplasia or an upstream stenosis.
--- NOTE | 2024-02-09 21:49 | MR ---
EXAMINATION TYPE: MR brain wo con DATE OF EXAM: 02/09/2024 COMPARISON: 06/01/2023 HISTORY: Follow-up cerebral cysts. CONTRAST: Performed utilizing 0 mL intravenous Gadavist gadolinium contrast. TECHNIQUE: Multiplanar, multiecho imaging on a 3.0 Katina magnet is performed through the brain. Stud y is performed within 24 hours of arrival to the hospital. The craniovertebral junction is normal. The pituitary is normal. Diffusion-weighted imaging is performed. No abnormal hyperintensity is present to suggest an acute i ntracranial infarct or acute ischemic change. There is a 0.8 cm intermediate density in the junction between the lateral ventricles and third ventr icle likely is a colloid cyst. No hydrocephalus is evident. No temporal horn dilatation is evident. T his is hyperintense on T2-weighted sequences There are scattered punctate areas of hyperintensity on T2 and Inversion Recovery weighted sequences which are non-specific but can be related to chronic microvascular ischemic changes. Differential lita gnosis includes multiple sclerosis, Lyme disease, vasculitis Ventricles and sulci are appropriate for the patient age. Retention cyst within the maxillary sinuses. Mucosal thickening is seen left ethmoid air cells. Masto id air cells are clear. IMPRESSION: 1. 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 2. Chronic appearing periventricular white matter ischemic changes, stable from comparison
== END | disposition home or self-care (01) ==
LOC: RADMRIMAIN 11:28
PROVIDERS: ATTEND Family Medicine
DX: G93.0 Cerebral cysts (principal); I67.82 Cerebral ischemia; F50.89 Other specified eating disorder; Q14.1 Congenital malformation of retina
CPT/HCPCS: 70544; 70551